=== PATIENT | female | born 1990 | race Caucasian/White ===

== ENCOUNTER 2020-04-20 20:43 | Inpatient (IN) ==
[~2020-04-20 20:43] MED LIST: Famotidine 20 MG/2 ML VIAL IVP PRN; Metoclopramide 10 MG/2 ML VIAL IVP PRN; Naloxone 0.4 MG/ML INJ IVP PRN; Penicillin G Potassium 5,000,000 UNIT in 0.9 % Sodium Chloride Mini Bag 100 ML IVPB ONE
[2020-04-20] MEDS ORDERED: Ringers Solution, Lactated 1,000 ML ONE (21:02)
[2020-04-20 21:13] LABS: Basophils # 0.1 K/mcL (0.0-0.2); Basophils % 0.4 %; Eosinophils # 0.2 K/mcL (0.0-0.6); Eosinophils % 1.3 %; Hematocrit 36.6 % (35.3-44.9); Hemoglobin 12.7 g/dL (11.5-15.4); Immature Granulocytes % 0.8 % (0-4); Lymphocytes # 2.4 K/mcL (0.6-4.6); Lymphocytes % 17.9 %; Mean Corpuscular HGB Conc 34.7 g/dL (31.6-35.5); Mean Corpuscular Volume 97.9 fL (83.0-100.0); Mean Platelet Volume 11.9 fL (9.4-12.4); Monocytes # 1.3 K/mcL (0.0-1.3); Monocytes % 9.8 %; Neutrophils # 9.2 K/mcL (1.6-8.9); Platelet Count 190 K/mcL (140-400); Red Blood Count 3.74 M/mcL (3.82-4.97); Red Cell Distribution Width 12.9 % (11.5-14.5); Segmented Neutrophils % 69.8 %; White Blood Count 13.2 K/mcL (4.3-11.1)
[2020-04-21] MEDS ORDERED: Penicillin G Potassium 2,500,000 UNIT/105 ML MLS IVPB SCH (01:00)
[2020-04-21] MEDS ORDERED: Oxytocin 20 units/ LR 1000 mL 20 UNIT/1,000 ML BAG IVC ONE (01:02)
[2020-04-21] MEDS ORDERED: Ibuprofen 600 MG TABLET PO ONE (01:19)
[2020-04-21] MEDS ORDERED: Lanolin 7 G OINT...G. TP PRN (03:37)
[2020-04-21] MEDS ORDERED: Oxytocin 20 units/ LR 1000 mL 20 UNIT/1,000 ML BAG IVC SCH (03:37)
[2020-04-21] MEDS ORDERED: Benzocaine/Menthol 56 GM AEROSOL SPRAY TP PRN (03:37)
[2020-04-21] MEDS ORDERED: Acetaminophen 325 MG TABLET PO PRN (03:37)
[2020-04-21 04:54] LABS: Basophils # 0.1 K/mcL (0.0-0.2); Basophils % 0.3 %; Eosinophils % 0.2 %; Hematocrit 36.2 % (35.3-44.9); Hemoglobin 12.3 g/dL (11.5-15.4); Immature Granulocytes % 0.6 % (0-4); Lymphocytes # 1.4 K/mcL (0.6-4.6); Lymphocytes % 7.7 %; Mean Corpuscular Hemoglobin 32.8 pg (28.0-33.3); Mean Corpuscular Volume 96.5 fL (83.0-100.0); Mean Platelet Volume 11.8 fL (9.4-12.4); Monocytes # 1.1 K/mcL (0.0-1.3); Neutrophils # 15.9 K/mcL (1.6-8.9); Platelet Count 175 K/mcL (140-400); Red Blood Count 3.75 M/mcL (3.82-4.97); Segmented Neutrophils % 85.2 %; White Blood Count 18.6 K/mcL (4.3-11.1)
[2020-04-21] MEDS: Ibuprofen 600 MG TABLET PO PRN ×2 (08:20→17:56)
[2020-04-21] MEDS: Prenatal Vit/FA 1 EACH TABLET PO SCH (08:20)
[2020-04-22] MEDS: Ibuprofen 600 MG TABLET PO PRN (03:38)
[2020-04-22] MEDS: Prenatal Vit/FA 1 EACH TABLET PO SCH (07:38)
[2020-04-22 07:53] VITALS: BP 104/66
== END 2020-04-22 10:58 | disposition home or self-care (01) | DRG 806 ==
LOC: 1NENULAB → 1NENUOBS 04-21 03:37
PROVIDERS: ADMIT Student in an Organized Health Care Education/Training Program; ATTEND Student in an Organized Health Care Education/Training Program